=== PATIENT | female | born 1995 | race Two or more races ===

== ENCOUNTER 2019-11-21 22:56 | Emergency (ER) | payer MEDICAID ==
[~2019-11-21] VITALS: Ht 162.6 cm; Wt 113.4 kg
[2019-11-21 23:02] VITALS: BP 142/84
== END 2019-11-22 00:23 | disposition home or self-care (01) ==
LOC: ER 22:58
DX: O26.892 Other specified pregnancy related conditions, second trimester (principal); R55 Syncope and collapse; Z3A.19 19 weeks gestation of pregnancy